=== PATIENT | male | born 1950 | race Caucasian/White ===

== ENCOUNTER → 2021-07-07 | Outpatient (CLI) | payer MEDICARE, BC ==
--- NOTE | 2021-07-07 09:08 | US ---
EXAMINATION TYPE: US duplex aorta DATE OF EXAM: 07/07/2021 COMPARISON: NONE CLINICAL HISTORY: Z13.6 screening triple A. Former smoker. Family history of AAA. EXAM MEASUREMENTS: Abdominal Aorta: Proximal: 2.8 x 2.3 cm Mid: 2.3 x 2.4 cm Distal: 2.2 x 2.2 cm Bifurcation: rt, 1.4 x 1.5 cm lt, 1.4 x 1.4 cm IMPRESSION: Normal caliber aorta.
== END | disposition home or self-care (01) ==
LOC: RADUSWWP 08:16
PROVIDERS: ATTEND Internal Medicine
DX: Z13.6 Encounter for screening for cardiovascular disorders (principal); Z87.891 Personal history of nicotine dependence; Z82.49 Family history of ischemic heart disease and other diseases of the circulatory system
CPT/HCPCS: 93979

== ENCOUNTER 2022-09-06 06:12 | Day surgery (SDC) | payer MEDICARE, BC ==
[2022-09-06] MEDS ORDERED: LACTATED RINGERS 1,000 ML IV SCH (06:40)
[2022-09-06] MEDS ORDERED: LIDOCAINE 1% (10MG/ML) FOR IV START INTRADERMA PRN (06:40)
[2022-09-06 06:54] VITALS: TEMP 98
[2022-09-06] MEDS ORDERED: PROPOFOL 10 MG/ML 20 ML VIAL IV ONE (07:22)
--- NOTE | 2022-09-06 07:51 | P.PCN ---
Date of Procedure: 09/06/22 Procedure(s) Performed: BRIEF HISTORY: Patient is a 71-year-old pleasant white male scheduled for an elective colonoscopy as a part of screening for colorectal neoplasia. PROCEDURE PERFORMED: Colonoscopy. PREOPERATIVE DIAGNOSIS: Screening for colon cancer. IV sedation per Anesthesia. PROCEDURE: After informed consent was obtained, the patient, was brought into the endoscopy unit. IV sedation was administered by Anesthesia under continuous monitoring. Digital rectal examination was normal. Initially the Olympus CF-160 flexible video colonoscope was then inserted in the rectum, gradually advanced into the cecum without any difficulty. Careful examination was performed as the scope was gradually being withdrawn. Ileocecal valve and the appendiceal orifice were visualized and appeared normal. Prep was excellent. Mucosa of the cecum, ascending colon, transverse colon, descending colon, sigmoid colon, and rectum appeared normal. Moderate sigmoid diverticulosis. Retroflexion was performed in the rectum and no lesions were seen. The patient tolerated the procedure well. IMPRESSION: Normal-appearing colon from rectum to cecum with no evidence of colorectal neoplasia. Moderate sigmoid diverticulosis. RECOMMENDATIONS: Findings of this examination were discussed with the patient a s well as a family. She was advised to have a repeat screening colonoscopy in 10 years..
[2022-09-06 08:20] VITALS: BP 114/77; PULSE 72; RESP 16
== END 2022-09-06 08:38 | disposition home or self-care (01) ==
LOC: ORWHC2ENDO 06:12
PROVIDERS: ATTEND Internal Medicine Gastroenterology
DX: Z12.11 Encounter for screening for malignant neoplasm of colon (principal); K57.30 Diverticulosis of large intestine without perforation or abscess without bleeding; K21.9 Gastro-esophageal reflux disease without esophagitis; Z87.891 Personal history of nicotine dependence
CPT/HCPCS: J2704; G0121